=== PATIENT | male | born 1945 | race Caucasian/White ===

== ENCOUNTER 2020-01-06 14:35 | Emergency (ER) | payer MEDICARE, BC, SELFPAY ==
--- NOTE | ~2020-01-06 | XR_ITS ---
EXAMINATION: XR chest 2V DATE: 01/06/2020 15:20 INDICATION: Chest tightness. TECHNIQUE: Frontal and lateral views of the chest were obtained. COMPARISON: Chest 2 views 03/19/2015 FINDINGS: There is mild atelectasis versus scarring in the lower lung zones. No pleural effusion or p neumothorax. The heart size is normal. There are surgical changes in the abdomen. IMPRESSION: 1. Mild atelectasis versus scarring in the lower lung zones. Reviewed, dictated and finalized at location A.
[2020-01-06 14:54] VITALS: BP 122/75; PULSE 103; RESP 18; TEMP 36.4; O2SAT 97
--- NOTE | 2020-01-06 15:01 | ECG_ITS ---
Measurements Intervals [place] Rate: 100 P: 44 IA: 181 QRS: -11 QRSD: 96 T: -31 QT: 319 QTc: 412 Interpretive Statements SINUS TACHYCARDIA DELAYED PRECORDIAL R/S TRANSITION BORDERLINE ST-T WAVE ABNORMALITY- INFERIOR LEADS BORDERLINE ECG Electronically Signed On 01-06-2020 16:06:01 CDT by Octavio Alvarez D.O.
--- NOTE | 2020-01-06 15:12 | ED.CHESTPAIN ---
HPI - Chest Pain General Chief Complaint: Chest Pain Stated Complaint: chest pain Time Seen by Provider: 01/06/20 14:55 Source: patient Mode of arrival: ambulatory Limitations: no limitations History of Present Illness HPI narrative: Romeo is a 74-year-old male patient. He presents ambulatory to the emergency room. He states that he has had some left chest pain for the past 5 days. This started . The pain is intermittent. It is somewhat sharp. It is nonradiating. He does not have any pain at this particular time. Delmy has the pain he rates it as mild to moderate. He thought that he had some reflux problem as it actually started from the epigastric area. He has history of obesity surgery in the past. No shortness of breath. No cough. No fever. No history of MS. He does have history of diabetes mellitus .He does not smoke cigarettes. No history of heart disease in the immediate family. No history of DVT or PE in the past. MD complaint: chest pain Pertinent past history: other ( Hypertension. Obesity surgery. Type 2 IDDM.) Onset (ago): day(s) ( Five days ago) Timing of current episode: other ( please see HPI narrative) Prior episodes: No Onset: during rest Pain location: left chest Pain radiation: none Severity: mild Quality: sharp Relieving factors: other ( pain is intermittent and subsides spontaneously. Currently he is not having pain.) Exacerbating factors: nothing Context: other ( No recent surgery.) Treatment prior to arrival: none Risk Factors Coronary artery disease risk factors: diabetes Related Data Allergies Allergy/AdvReac Type Severity Reaction Status Date / Time No Known Allergies Allergy Verified 01/06/20 15:47 Review of Systems Review of Systems: All systems reviewed & are unremarkable except as noted in HPI and below Constitutional: Constitutional: Reports as per HPI, Reports no additional constitutional complaints, Denies chills, Denies fever(s) and Denies weakness Eyes: Eyes: Reports as per HPI, Reports no additional eye complaints and Denies change in vision ENT: Reports system reviewed and no additional complaints, except as documented, Denies vertigo, Denies dizziness, Denies nasal congestion and Denies sore throat Cardiovascular: Cardiovascular: Reports as per HPI, Reports no additional cardiovascular complaints, Reports chest pain and Denies radiating jaw, neck or arm pain Respiratory: Respiratory: Reports as per HPI, Reports no additional respiratory complaints, Denies chest congestion, Denies cough, Denies dyspnea and Denies wheezing Gastrointestinal: Gastrointestinal: Reports as per HPI, Reports no additional gastrointestinal complaints, Denies abdominal pain, Denies diarrhea, Denies nausea and Denies vomiting Genitourinary: Genitourinary: Reports no additional male genitourinary complaints, Reports as per HPI, Denies hematuria and Denies dysuria Musculoskeletal: Musculoskeletal: Reports no additional musculoskeletal complaints, Reports as per HPI and Denies back pain Integumentary/Breasts: Skin/Breast: Reports system reviewed and no additional complaints, except as docu, Denies erythema and Denies rash Neurologic: Reports system reviewed and no additional complaints, except as documented, Reports as per HPI, Denies vertigo, Denies dizziness, Denies syncope, Denies headache(s), Denies focal weakness, Denies numbness and Denies weakness Psychiatric: Psychiatric: Reports no additional psychiatric complaints, Denies anxiety and Denies depression Endocrine: Endocrine: Reports no additional endocrine complaints Comments: History of type 2 IDDM Hematologic/Lymphatic: Hematologic/Lymphatic: Reports no additional hematologic/lymphatic complaints, Reports as per HPI, Denies easy bleeding and Denies easy bruising Allergic/Immunologic: Allergic/Immunologic: Reports no additional allergic/immunologic complaints, Reports as per HPI, Denies lip swelling and Denies tongue swelling PMFSH P
[2020-01-06 15:21] LABS: Basophils Absolute Auto 0.06 K/mm3 (0.00-0.10); Basophils Percent Auto 0.6 % (0.0-1.0); Eosinophils Percent Auto 1.9 % (1.0-6.0); Hematocrit 46.2 % (37.0-46.0); Hemoglobin 15.5 g/dL (12.4-15.3); Immature Granulocyte Absolute 0.04 K/mm3 (0.00-0.00); Immature Granulocyte Percent A 0.4 % (0.0-0.0); Lymphocytes Absolute Auto 1.67 K/mm3 (1.10-4.50); Lymphocytes Percent Auto 16.1 % (18.0-42.0); Mean Corpuscular HGB Conc 33.5 g/dL (32.0-36.0); Mean Corpuscular Hemoglobin 29.6 pg (27.0-31.0); Mean Corpuscular Volume 88.3 fL (78.0-102.0); Monocytes Absolute Auto 0.54 K/mm3 (0.10-0.90); Monocytes Percent Auto 5.2 % (2.0-11.0); Neutrophils Absolute Auto 7.9 K/mm3 (1.7-7.2); Neutrophils Percent Auto 75.8 % (50.0-70.0); Platelet Count Result 343 K/mm3 (150-420); Red Blood Count 5.23 M/mm3 (4.70-6.10); Red Cell Distribution Width 12.2 % (11.6-14.4); White Blood Count 10.4 K/mm3 (4.8-10.8)
[2020-01-06 15:35] LABS: Partial Thromboplastin Time 27.4 SEC (22.3-31.6); Prothrombin Time 10.2 Seconds (9.64-11.0)
[2020-01-06 15:42] LABS: BNP 7 pg/mL (0-100)
[2020-01-06 16:02] LABS: Alanine Aminotransferase 52 U/L (16-63); Albumin Level 3.8 g/dL (3.4-5.0); Alkaline Phosphatase 56 U/L (46-116); Amylase 31 U/L (25-115); Anion Gap 15.8 mmol/L (7-16); Aspartate Amino Transferase 28 U/L (15-37); Bilirubin,Total 0.4 mg/dL (0.00-1.00); Blood Urea Nitrogen 23 mg/dL (7-18); Calcium 9.7 mg/dL (8.5-10.1); Carbon Dioxide 25 mmol/L (21-32); Chloride 100 mmol/L (98-108); Creatine Kinase 58 U/L (39-308); Estimated CRCL calculation 63 ml/min; Estimated Glomerular Filt Rate > 60; Glucose 288 mg/dL (70-99); Osmolality Calculated 296 mOsm/kg (285-295); Potassium 4.8 mmol/L (3.5-5.1); Sodium 136 mmol/L (136-145); Total Protein 7.9 g/dL (6.4-8.2); Troponin I < 0.02 ng/mL (0.00-0.056)
[2020-01-06 16:03] LABS: Lipase 99 U/L (73-393); Magnesium 1.6 mg/dL (1.8-2.4); Thyroid Stimulating Hormone 1.97 uIU/mL (0.36-3.74)
[2020-01-06 16:25] VITALS: BP 111/64; PULSE 92; RESP 20; O2SAT 96
[2020-01-06 17:59] LABS: Troponin I < 0.02 ng/mL (0.00-0.056)
[2020-01-06 18:12] VITALS: BP 103/52; PULSE 79; RESP 16; O2SAT 95
== END 2020-01-06 18:13 | disposition home or self-care (01) ==
PROVIDERS: Emergency Provider Surgery; PCP Nurse Practitioner Family
DX: R07.9 Chest pain, unspecified (principal); K21.9 Gastro-esophageal reflux disease without esophagitis; E78.5 Hyperlipidemia, unspecified; E11.9 Type 2 diabetes mellitus without complications
CPT/HCPCS: 36415; 71046; 80053; 82150; 82550; 82553; 83690; 83735; 83880; 84443; 84484; 85025; 85610; 85730; 93005; 99284

== ENCOUNTER 2023-04-29 10:58 | Outpatient (CLI) | payer MEDICARE, BC, SELFPAY ==
--- NOTE | ~2023-04-29 | XR_ITS ---
Lumbosacral Spine: AP and lateral views Clinical History: Pain Findings: The normal lordotic curve is maintained. No acute fracture identified. Probable minimal gra de 1 retrolisthesis of L2 over L3. Probable minimal grade 1 anterolisthesis of L4 over L5. There is m ild to moderate facet arthropathy from L3 through S1. There is moderate degenerative disc narrowing a t L1-L2 and L2-L3. The sacroiliac joints are normally outlined. Impression: Mild to moderate degenerative spondylosis, as detailed above. Reviewed, dictated and finalized at location [facility]. Impression: Mild to moderate degenerative spondylosis, as detailed above.
[2023-04-29 11:32] LABS: Appearance Urine Clear (Clear); Basophils Absolute Auto 0.07 K/mm3 (0.00-0.10); Basophils Percent Auto 0.8 % (0.0-1.0); Bilirubin Urine Negative (Negative); Blood Urine Negative (Negative); Color Urine Light Yellow (Yellow); Eosinophils Absolute Auto 0.17 K/mm3 (0.02-0.50); Glucose Urine UA 3+ (Negative); Hematocrit 46.9 % (37.0-46.0); Hemoglobin 15.8 g/dL (12.4-15.3); Immature Granulocyte Absolute 0.02 K/mm3 (0.00-0.00); Immature Granulocyte Percent A 0.2 % (0.0-0.0); Ketones Urine Trace (Negative); Leukocyte Esterase Ur Negative (Negative); Lymphocytes Absolute Auto 2.07 K/mm3 (1.10-4.50); Lymphocytes Percent Auto 24.3 % (18.0-42.0); Mean Corpuscular HGB Conc 33.7 g/dL (32.0-36.0); Mean Corpuscular Hemoglobin 30.3 pg (27.0-31.0); Mean Platelet Volume 10.1 fl (8.7-11.0); Monocytes Absolute Auto 0.58 K/mm3 (0.10-0.90); Monocytes Percent Auto 6.8 % (2.0-11.0); Neutrophils Absolute Auto 5.6 K/mm3 (1.7-7.2); Neutrophils Percent Auto 65.9 % (50.0-70.0); Nitrate Urine Negative (Negative); Platelet Count Result 255 K/mm3 (150-420); Protein Urine Negative (Negative); Red Blood Count 5.21 M/mm3 (4.70-6.10); Red Cell Distribution Width 12.2 % (11.6-14.4); Specific Grav Ur 1.025 (1.010-1.020); Urobilinogen Urine 0.2 mg/dL (0.2-1.0); White Blood Count 8.5 K/mm3 (4.8-10.8); pH Urine 5.5 (5.0-8.0)
[2023-04-29 11:36] LABS: Add Urine Microscopic? YES; Bacteria Urine 3+ /hpf; RBC Urine None seen /hpf (0-2); Squamous Epithelial Cell Urine Few /hpf (Few)
[2023-04-29 11:40] LABS: Alanine Aminotransferase 26 U/L (16-63); Albumin Level 3.6 g/dL (3.4-5.0); Alkaline Phosphatase 70 U/L (46-116); Anion Gap 7 mmol/L (8-16); Aspartate Amino Transferase 15 U/L (15-37); Bilirubin,Total 0.6 mg/dL (0.00-1.00); Blood Urea Nitrogen 15 mg/dL (7-18); Calcium 8.6 mg/dL (8.5-10.1); Carbon Dioxide 28 mmol/L (21-32); Chloride 99 mmol/L (98-108); Estimated Glomerular Filt Rate > 60; Glucose 281 mg/dL (70-99); Osmolality Calculated 288 mOsm/kg (285-295); Sodium 134 mmol/L (136-145); Total Protein 7.8 g/dL (6.4-8.2)
== END 2023-04-29 10:59 | disposition home or self-care (01) ==
LOC: CHSIMG 10:59
PROVIDERS: PCP Emergency Medicine; Visit Provider Emergency Medicine
DX: M54.50 Low back pain, unspecified (principal); R10.9 Unspecified abdominal pain; M43.06 Spondylolysis, lumbar region
CPT/HCPCS: 36415; 72100; 80053; 81001; 85025; 87077; 87086; 87088; 87186

== ENCOUNTER 2023-05-04 12:33 | Outpatient (CLI) | payer MEDICARE, BC, SELFPAY ==
--- NOTE | ~2023-05-04 | CT_ITS ---
Non-contrast CT scan of the Abdomen and Pelvis Clinical indication: Right flank pain Technique: 2.5 mm axial scans were obtained through the abdomen and pelvis without intravenous or or al contrast. Dose reduction technique was used on this scan by utilizing automated exposure control a nd iterative reconstruction technique. The dose-length product (DLP) was 682.68 mGy-cm. Findings: Images through the lung bases reveal minimal bibasilar chronic interstitial disease. There is no evidence of renal or ureteral calculi. The kidneys and the ureters are nondilated. The liver, spleen, pancreas, and adrenals appear normal. Cholecystectomy clips are present. There are atherosclerotic calcifications of the aorta. There is no evidence of bowel obstruction. There is laxity of the inferior anterior abdominal wall ve rsus large wide necked hernia containing small bowel loops. Images through the pelvis were performed. There is no evidence of ascites or lymphadenopathy. Urinary bladder unremarkable. Prostate gland is enlarged. Impression: Enlarged prostate gland. Laxity of the inferior, anterior abdominal wall versus large wide necked hernia containing small jason l loops. No bowel obstruction or bowel wall thickening. Reviewed, dictated and finalized at [facility]. Impression: Enlarged prostate gland. Laxity of the inferior, anterior abdominal wall versus large wide necked hernia containing small bowel loops. No bowel obstruction or bowel wall thickening.
== END 2023-05-04 12:34 | disposition home or self-care (01) ==
LOC: CHSIMG 12:35
PROVIDERS: PCP Family Medicine; Visit Provider Emergency Medicine
DX: R10.9 Unspecified abdominal pain (principal); N40.0 Benign prostatic hyperplasia without lower urinary tract symptoms
CPT/HCPCS: 74176